=== PATIENT | female | born 1940 | race Caucasian/White ===

== ENCOUNTER 2021-08-18 17:28 | Emergency (ER) | payer MEDICARE ==
[~2021-08-18] VITALS: Ht 167.6 cm; Wt 65.0 kg
[2021-08-18] MEDS ORDERED: normal saline 1000ml 1,000 ML IV ONE (23:15)
[2021-08-18] MEDS ORDERED: normal saline 1000ML IV soln IVB ONE (23:15)
[2021-08-19 00:08] LABS: HEMATOCRIT 37.7 % (35.0-45.0); HEMOGLOBIN 12.7 g/dl (12.0-16.0); MEAN CORPUSCULAR HEMOGLOBIN 30.8 PG (27.0-31.0); MEAN CORPUSCULAR HGB CONC 33.8 g/dL (33.0-36.5); MEAN CORPUSCULAR VOLUME 91.3 FL (78-98); RED BLOOD COUNT 4.13 X10'6 (4.20-5.60); RED CELL DISTRIBUTION WIDTH 13.7 % (11.5-14.5); WHITE BLOOD COUNT 18.1 X10'3 (4.5-11.0)
[2021-08-19 00:09] LABS: BASOPHILS % (AUTO) 0.1 % (0-1); EOSINOPHILS % (AUTO) 0 % (0-6); LYMPHOCYTES # (AUTO) 0.9 X10'3 (1.1-4.8); LYMPHOCYTES % (AUTO) 5.1 % (21-51); MEAN PLATELET VOLUME 8.1 FL (7.4-10.4); MONOCYTES % (AUTO) 5.6 % (2-12); NEUTROPHILS # (AUTO) 16.1 X10'3 (1.8-7.7); NEUTROPHILS % (AUTO) 89.2 % (42-75); PLATELET COUNT 240 X10'3 (140-440)
[2021-08-19] MEDS ORDERED: mag hydrox/Alum hydrox/simeth 30ml oral suspension PO ONE (00:15)
[2021-08-19] MEDS ORDERED: LIDOcaine Viscous 15ml cup MM ONE (00:15)
[2021-08-19 00:27] LABS: ALANINE AMINOTRANSFERASE 10 U/L (12-78); ALBUMIN 3.1 G/DL (3.4-5.0); ALBUMIN/GLOBULIN RATIO 0.6 (1.1-1.5); ALKALINE PHOSPHATASE 76 IU/L (46-116); ANION GAP 14 (8-16); ASPARTATE AMINO TRANSFERASE 19 U/L (10-37); BILIRUBIN,TOTAL 0.7 MG/DL (0.1-1.0); BLOOD UREA NITROGEN 19 MG/DL (7-18); BUN/CREATININE RATIO 15.3 (6.6-38.0); CHLORIDE 100 MMOL/L (99-107); CREATININE 1.24 MG/DL (0.40-0.90); GLUCOSE 123 MG/DL (70-104); LIPASE < 50 U/L (73-393); POTASSIUM 3.5 MMOL/L (3.5-5.1); SODIUM 139 MMOL/L (135-145); TOTAL CARBON DIOXIDE 25.5 MMOL/L (24-32); eGFR 42 ML/MIN
--- NOTE | 2021-08-19 00:53 | NUR ---
PT SPIT UP LIDOCANE AND MAALOX MIXTURE, RN HAD TO USE SUCTION TO CLEAR AIRWAY. AWARE.
[2021-08-19] MEDS ORDERED: AMOX-117 PO (02:20)
[2021-08-19] MEDS ORDERED: cefTRIAXone 1g/NS 100ml IVPB 100 ML IV ONE (02:20)
[2021-08-19] MEDS ORDERED: diphenhydrAMINE 25 MG/10 ML UD oral solution PO ONE (02:20)
[2021-08-19] MEDS ORDERED: dexamethasone sod phosphate 10mg/ml inj IV STA (02:32)
[2021-08-19] MEDS ORDERED: diphenhydrAMINE 50 mg/ml inj IV ONE (02:35)
[2021-08-19] MEDS ORDERED: amox tr/potassium clavulanate 875/125mg TAB PO ONE (02:55)
[2021-08-19 03:27] VITALS: BP 134/51
== END 2021-08-19 03:28 | disposition home or self-care (01) ==
LOC: ER 17:29
DX: J32.9 Chronic sinusitis, unspecified (principal); Z20.822 Contact with and (suspected) exposure to COVID-19; R49.0 Dysphonia; J02.9 Acute pharyngitis, unspecified; R50.9 Fever, unspecified; R05.9 Cough, unspecified; R09.89 Other specified symptoms and signs involving the circulatory and respiratory systems; F17.200 Nicotine dependence, unspecified, uncomplicated; Z98.51 Tubal ligation status; Z79.2 Long term (current) use of antibiotics
CPT/HCPCS: 36415; 70360; 70490; 71045; 80053; 83690; 83735; 85025; 87635; 96361; 96365; 96375; 99285; C9803; J0696; J1100; J1200; J7030

== ENCOUNTER 2022-10-24 08:57 | Emergency (ER) | payer MEDICARE ==
[~2022-10-24] VITALS: Ht 167.6 cm; Wt 70.0 kg
[2022-10-24 09:13] VITALS: TEMP 98.2
[2022-10-24 09:22] LABS: BASOPHILS % (AUTO) 0.4 % (0-1); EOSINOPHILS # (AUTO) 0.1 X10'3 (0-0.9); EOSINOPHILS % (AUTO) 1.2 % (0-6); HEMATOCRIT 42.5 % (35.0-45.0); HEMOGLOBIN 14.3 g/dl (12.0-16.0); LYMPHOCYTES # (AUTO) 2.4 X10'3 (1.1-4.8); MEAN CORPUSCULAR HEMOGLOBIN 32.2 PG (27.0-31.0); MEAN CORPUSCULAR HGB CONC 33.6 g/dL (33.0-36.5); MEAN CORPUSCULAR VOLUME 95.7 FL (78-98); MEAN PLATELET VOLUME 8.6 FL (7.4-10.4); MONOCYTES # (AUTO) 0.9 X10'3 (0-0.9); NEUTROPHILS % (AUTO) 63.4 % (42-75); PLATELET COUNT 267 X10'3 (140-440); RED BLOOD COUNT 4.44 X10'6 (4.20-5.60); RED CELL DISTRIBUTION WIDTH 14.6 % (11.5-14.5); WHITE BLOOD COUNT 9.5 X10'3 (4.5-11.0)
[2022-10-24 09:32] LABS: ANION GAP 7 (8-16); BLOOD UREA NITROGEN 19 MG/DL (7-18); CALCIUM 9.7 MG/DL (8.5-10.1); CHLORIDE 101 MMOL/L (99-107); GLUCOSE 103 MG/DL (70-104); SODIUM 137 MMOL/L (135-145); TOTAL CARBON DIOXIDE 28.7 MMOL/L (24-32); eCRCL 40 ML/MIN; eGFR 53 ML/MIN
[2022-10-24 09:33] LABS: ALANINE AMINOTRANSFERASE 19 U/L (12-78); ALBUMIN 4.1 G/DL (3.4-5.0); ALKALINE PHOSPHATASE 58 IU/L (46-116); ASPARTATE AMINO TRANSFERASE 18 U/L (10-37); BILIRUBIN,TOTAL 0.6 MG/DL (0.1-1.0); TOTAL PROTEIN 8.4 G/DL (6.4-8.2)
[2022-10-24 09:38] LABS: PRO BRAIN NATRIURETIC PEPTIDE 225 PG/ML (0-450)
[2022-10-24] MEDS ORDERED: LISI10TA27 PO (10:09)
[2022-10-24 10:24] VITALS: BP 115/96; PULSE 48; RESP 14; O2SAT 96
== END 2022-10-24 10:26 | disposition home or self-care (01) ==
LOC: ER 08:57
DX: I10 Essential (primary) hypertension (principal); R00.1 Bradycardia, unspecified; R42 Dizziness and giddiness; F17.210 Nicotine dependence, cigarettes, uncomplicated; Z98.51 Tubal ligation status; Z79.899 Other long term (current) drug therapy
CPT/HCPCS: 36415; 71045; 80053; 83880; 84484; 85025; 93005; 99285